=== PATIENT | female | born 1965 | race Two or more races ===

== ENCOUNTER 2018-05-01 07:14 | Observation (INO) | payer OTHER ==
[2018-05-01 07:29] VITALS: BMI 22.8
[2018-05-01] MEDS ORDERED: ASPIRIN 325 MG TABLET PO ONE (07:40)
[2018-05-01] MEDS ORDERED: ASPIRIN 325 MG TABLET ONE (07:45)
[2018-05-01 08:11] LABS: MONO % 8.5 % (3.8-10.2)
--- NOTE | 2018-05-01 08:12 | PDOC ---
*Physical Exam - Vital Signs Last Vital Signs Temp Pulse Resp BP Pulse Ox 98.2 F 69 18 143/93 100 05/01/18 07:27 05/01/18 07:27 05/01/18 07:27 05/01/18 07:27 05/01/18 07:27 - Physical Exam Comments: 05/01/18 08:11 I ED Treatment Course - LABORATORY CBC & Chemistry Diagram: 05/01/18 07:52 05/01/18 07:52 - Medications Given in the ED: ED Medications Discontinued Medications Generic Name Dose Route Start Last Admin Trade Name Freq PRN Reason Stop Dose Admin Aspirin 325 mg 05/01/18 07:40 05/01/18 07:46 Asa - PO 05/01/18 07:41 325 mg ONCE ONE Administration
--- NOTE | 2018-05-01 08:12 | PDOC ---
History of Present Illness - General Chief Complaint: Shortness of Breath Stated Complaint: SOB Time Seen by Provider: 05/01/18 07:26 History Source: Patient - History of Present Illness Presenting Symptoms: Chest Pain, Short of Breath Past History - Past Medical History Allergies/Adverse Reactions: Allergies Allergy/AdvReac Type Severity Reaction Status Date / Time No Known Allergies Allergy Verified 05/01/18 07:29 Home Medications: Ambulatory Orders Cholecalciferol (Vitamin D3) [Vitamin D3] 1,000 unit PO DAILY 05/01/18 Naproxen 500 mg PO BID 05/01/18 COPD: No Hypercholesterolemia: Yes - Suicide/Smoking/Psychosocial Hx Smoking History: Never smoked Review of Systems - Review of Systems Constitutional: No: Chills, Fever Respiratory: Yes: Shortness of Breath. No: Cough Cardiac (ROS): Yes: Chest Pain. No: Lightheadedness, Palpitations, Syncope ABD/GI: No: Nausea, Vomiting *Physical Exam - Vital Signs Last Vital Signs Temp Pulse Resp BP Pulse Ox 98.2 F 69 18 143/93 100 05/01/18 07:27 05/01/18 07:27 05/01/18 07:27 05/01/18 07:27 05/01/18 07:27 - Physical Exam General Appearance: Yes: Appropriately Dressed. No: Apparent Distress HEENT: positive: Normal Voice Neck: positive: Supple Respiratory/Chest: positive: Lungs Clear, Normal Breath Sounds. negative: Respiratory Distress Cardiovascular: positive: Regular Rate, S1, S2 Gastrointestinal/Abdominal: positive: Soft. negative: Tender Extremity: negative: Pedal Edema Integumentary: positive: Dry, Warm Neurologic: positive: Fully Oriented, Alert, Normal Mood/Affect Heart Score/ECG Review - History History: Moderately suspicious - Electrocardiogram EKG: Normal - Age Age: 45-65 - Risk Factors Risk Factors Heart Score: Yes Hx Hypercholesterolemia, Yes Hx Hypertension Based on the list above the patient has:: >/=3 risk factors or Hx atherosclerotic disease - Troponin Troponin: </= normal limit - Score Heart Score - Total: 4 - ECG Intrepretation Comment:: 05/01/18 08:18 Twelve-lead EKG was performed and reviewed by me. There is normal sinus rhythm with a normal rate. The axis is normal. The intervals are normal. There are no ST or T wave abnormalities. Impression: Normal twelve-lead EKG ED Treatment Course - LABORATORY CBC & Chemistry Diagram: 05/01/18 07:52 05/01/18 07:52 - ADDITIONAL ORDERS Additional order review: Laboratory Results 05/01/18 07:52 Sodium 143 Potassium 4.6 Chloride 110 H Carbon Dioxide 27 Anion Gap 6 L BUN 14 Creatinine 0.7 Creat Clearance w eGFR > 60 Random Glucose 90 Calcium 9.4 Total Bilirubin 0.3 AST 16 ALT 27 Alkaline Phosphatase 92 Creatine Kinase 112 Troponin I < 0.02 B-Natriuretic Peptide 29.8 Total Protein 7.2 Albumin 4.0 05/01/18 07:52 RBC 4.61 MCV 88.0 MCHC 32.9 RDW 13.7 MPV 7.9 Neutrophils % 50.5 Lymphocytes % 38.3 Monocytes % 8.5 Eosinophils % 2.1 Basophils % 0.6 - RADIOLOGY Radiology Studies Ordered: Category Date Time Status CHEST X-RAY PORTABLE* [RAD] Stat Radiology 05/01/18 07:40 Ordered - Medications Given in the ED: ED Medications Discontinued Medications Generic Name Dose Route Start Last Admin Trade Name Freq PRN Reason Stop Dose Admin Aspirin 325 mg 05/01/18 07:40 05/01/18 07:46 Asa - PO 05/01/18 07:41 325 mg ONCE ONE Administration Medical Decision Making - Medical Decision Making 05/01/18 08:12 53-year-old female, history of hypertension, hyperlipidemia, CAD, s/p stent over a year ago, not on any blood thinners, here with chest pain. Patient states for the past 3 weeks she's had left-sided chest pain that sometimes radiate to neck and arm, feels like someone pressing on her chest per patient, 7 out of 10, intermittent and usually lasts for 1 minute with no exacerbating or alleviating factors. Patient states for the past 2 months she's had what sounds like mild dyspnea on exertion, but states she wasn't really concerned about it. No diaphoresis, nausea, vomiting, palpitations, leg pain or swelling. States she has never had these symptoms before. 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 Case discussed with Dr. New and patient admitted to shira hawkins M.D., requesting Dr. Compa Martins of cardiology for consultation *DC/Admit/Observation/Transfer Diagnosis at time of Disposition: DAWSON (dyspnea on exertion) Chest pain Qualifiers: Chest pain type: unspecified Qualified Code(s): R07.9 - Chest pain, unspecified - Discharge Dispostion Condition at time of disposition: Fair Decision to Admit order: Yes Decision to Admit order Date/Time: Decision to Admit Order Category Date Time Status Decision to Admit to Hospital Routine Admission 05/01/18 09:28 Active - Referrals - Patient Instructions - Post Discharge Activity
[2018-05-01 08:14] LABS: BASO % 0.6 % (0-2.0); EOS % 2.1 % (0-4.5); HEMATOCRIT 40.6 % (32.4-45.2); HEMOGLOBIN 13.4 GM/dL (10.7-15.3); LYMPH % 38.3 % (8-40); MCHC 32.9 g/dl (32.0-36.0); MEAN PLT VOLUME 7.9 fl (7.5-11.1); NEUT % 50.5 % (42.8-82.8); PLATELET COUNT 235 K/MM3 (134-434); RBC 4.61 M/mm3 (3.60-5.2); RDW 13.7 % (11.6-15.6); WHITE BLOOD COUNT 4.1 K/mm3 (4.0-10.0)
[2018-05-01 08:53] LABS: ALK PHOS 92 U/L (45-117); ANION GAP 6 MMOL/L (8-16); BILIRUBIN,TOTAL 0.3 mg/dL (0.2-1); BLOOD UREA NITROGEN 14 mg/dL (7-18); CALCIUM 9.4 mg/dL (8.5-10.1); CHLORIDE 110 mmol/L (98-107); CO2 27 mmol/L (21-32); CREATININE 0.7 mg/dL (0.55-1.3); GLUCOSE,RANDOM 90 mg/dL (74-106); N-TERMINAL BNP 29.8 pg/ml (5-125); POTASSIUM 4.6 mmol/L (3.5-5.1); SGOT/AST 16 U/L (15-37); SGPT/ALT 27 U/L (13-61); SODIUM 143 mmol/L (136-145); TOT PROT 7.2 g/dl (6.4-8.2)
--- NOTE | 2018-05-01 11:43 | CON.CARD ---
Consult Consult Specialty:: Cardiology Referred by:: Chevy New MD Reason for Consultation:: Chest pain, dyspnea - History of Present Illness Chief Complaint: Chest pain, dyspnea History of Present Illness: 53 yo moroccan speaking female h/o migraine HAs presents for 2 year history of non-exertional chest tightness, dyspnea, palpitations, light-headedness, fatigue with exertion, sxs worse has 2 months. She underwent stress testing and echo at [facility], results requested, referred to cath at [place]. She denies true syncope, orthopnea, PND or LE edema. - Smoking History Smoking history: Never smoked <Compa Martins - Last Filed: 05/01/18 11:49> Home Medications <Compa Martins - Last Filed: 05/01/18 11:49> <Chevy New - Last Filed: 05/01/18 17:46> - Allergies Allergies/Adverse Reactions: Allergies Allergy/AdvReac Type Severity Reaction Status Date / Time No Known Allergies Allergy Verified 05/01/18 07:29 - Home Medications Home Medications: Ambulatory Orders Cholecalciferol (Vitamin D3) [Vitamin D3] 1,000 unit PO DAILY 05/01/18 Naproxen 500 mg PO BID 05/01/18 Review of Systems - Review of Systems Constitutional: reports: No Symptoms Eyes: reports: No Symptoms HENT: reports: No Symptoms Neck: reports: No Symptoms Cardiovascular: reports: Chest Pain, Palpitations, Shortness of Breath Respiratory: reports: No Symptoms Gastrointestinal: reports: No Symptoms Genitourinary: reports: No Symptoms Musculoskeletal: reports: No Symptoms Integumentary: reports: No Symptoms Neurological: reports: Dizziness Endocrine: reports: No Symptoms <Compa Martins - Last Filed: 05/01/18 11:49> Vital Signs: Vital Signs Temperature 98.2 F 05/01/18 07:27 Pulse Rate 69 05/01/18 07:27 Respiratory Rate 18 05/01/18 07:27 Blood Pressure 143/93 05/01/18 07:27 O2 Sat by Pulse Oximetry (%) 100 05/01/18 10:40 Constitutional: Yes: No Distress, Calm Neck: Yes: Supple Respiratory: Yes: Regular, CTA Bilaterally Gastrointestinal: Yes: Normal Bowel Sounds, Soft Cardiovascular: Yes: Regular Rate and Rhythm JVD: No Carotid Bruit: No Heart Sounds: Yes: S1, S2 Edema: No - Other Data Labs, Other Data: CBC, BMP 05/01/18 07:52 05/01/18 07:52 Troponin, BNP 05/01/18 07:52 Troponin I < 0.02 B-Natriuretic Peptide 29.8 Troponin, BNP 05/01/18 07:52 Troponin I < 0.02 B-Natriuretic Peptide 29.8 NSR @ [address]-T changes <Compa Martins - Last Filed: 05/01/18 11:49> Vital Signs: Vital Signs Temperature 98.2 F 05/01/18 07:27 Pulse Rate 69 05/01/18 07:27 Respiratory Rate 18 05/01/18 07:27 Blood Pressure 143/93 05/01/18 07:27 O2 Sat by Pulse Oximetry (%) 100 05/01/18 10:40 - Other Data Labs, Other Data: CBC, BMP 05/01/18 07:52 05/01/18 07:52 Troponin, BNP 05/01/18 07:52 Troponin I < 0.02 B-Natriuretic Peptide 29.8 Troponin, BNP 05/01/18 07:52 Troponin I < 0.02 B-Natriuretic Peptide 29.8 <Chevy New - Last Filed: 05/01/18 17:46> Imaging - Results Chest X-ray: Report Reviewed (NAD) <Compa Martins - Last Filed: 05/01/18 11:49> Problem List - Problems (1) Atypical chest pain Code(s): R07.89 - OTHER CHEST PAIN (2) Palpitations Code(s): R00.2 - PALPITATIONS (3) DAWSON (dyspnea on exertion) Code(s): R06.09 - OTHER FORMS OF DYSPNEA <Compa Martins - Last Filed: 05/01/18 11:49> Assessment/Plan 1. Atypical chest pain syndrome, dyspnea and palpitations suspect mitral valve prolapse syndrome 2. Migraine HAs 3. Anxiety d/o P:1. Ruling out for [place] 2. F/u echo and stress testing performed at cardiology office of Dr. Emanuel Puga [phone] for review 3. Thank you for consultative opportunity, plan of care d/w patient and daughter <Compa Martins Last Filed: 05/01/18 11:49>
--- NOTE | 2018-05-01 14:50 | EKG ---
Test Reason : Blood Pressure : / mmHG Vent. Rate : 063 BPM Atrial Rate : 063 BPM P-R Int : 158 ms QRS Dur : 086 ms QT Int : 384 ms P-R-T Axes : 034 -18 029 degrees QTc Int : 392 ms NORMAL SINUS RHYTHM NORMAL ECG NO PREVIOUS ECGS AVAILABLE Confirmed by NIKKO FUNK, EARNESTINE ([id number]) on 05/01/2018 2:50:15 PM Referred By: Confirmed By:EARNETSINE EL MD
[2018-05-01] MEDS ORDERED: ACETAMINOPHEN 325 MG TABLET (FP) ONE (15:47)
[2018-05-01] MEDS ORDERED: ACETAMINOPHEN 325 MG TABLET (FP) PO ONE (16:00)
--- NOTE | 2018-05-01 18:14 | HP ---
Admitting History and Physical - Primary Care Physician PCP: Chevy New - Admission History of Present Illness: 53 yo trinidadian speaking female h/o migraine HAs presents for 2 year history of non-exertional chest tightness, dyspnea, palpitations, light-headedness, fatigue with exertion. She underwent stress testing and echo at [place] [facility], results requested, referred to cath at [place]. She denies true syncope, orthopnea, PND or LE edema. - Smoking History Smoking history: Never smoked Home Medications - Allergies Allergies/Adverse Reactions: Allergies Allergy/AdvReac Type Severity Reaction Status Date / Time No Known Allergies Allergy Verified 05/01/18 07:29 - Home Medications Home Medications: Ambulatory Orders Cholecalciferol (Vitamin D3) [Vitamin D3] 1,000 unit PO DAILY 05/01/18 Naproxen 500 mg PO BID 05/01/18 Physical Examination Vital Signs: Vital Signs Temperature 98.2 F 05/01/18 07:27 Pulse Rate 69 05/01/18 07:27 Respiratory Rate 18 05/01/18 07:27 Blood Pressure 143/93 05/01/18 07:27 O2 Sat by Pulse Oximetry (%) 100 05/01/18 10:40 Constitutional: Yes: No Distress HENT: Yes: Atraumatic Neck: Yes: Supple Cardiovascular: Yes: Regular Rate and Rhythm Respiratory: Yes: CTA Bilaterally Gastrointestinal: Yes: Normal Bowel Sounds Extremities: Yes: WNL Edema: No Peripheral Pulses WNL: Yes Neurological: Yes: Alert, Oriented Labs: CBC, BMP 05/01/18 07:52 05/01/18 07:52 Problem List - Problems (1) Chest pain Assessment/Plan: tele monitoring fu cardiac enzymes cardiology consults Code(s): R07.9 - CHEST PAIN, UNSPECIFIED Qualifiers: Chest pain type: unspecified Qualified Code(s): R07.9 - Chest pain, unspecified (2) DAWSON (dyspnea on exertion) Code(s): R06.09 - OTHER FORMS OF DYSPNEA Assessment/Plan Laboratory Tests 05/01/18 05/01/18 07:52 07:52 WBC 4.1 RBC 4.61 Hgb 13.4 Hct 40.6 MCV 88.0 MCH 29.0 MCHC 32.9 RDW 13.7 Plt Count 235 MPV 7.9 Absolute Neuts (auto) 2.1 Neutrophils % 50.5 Lymphocytes % 38.3 Monocytes % 8.5 Eosinophils % 2.1 Basophils % 0.6 Nucleated RBC % 0 Sodium 143 Potassium 4.6 Chloride 110 H Carbon Dioxide 27 Anion Gap 6 L BUN 14 Creatinine 0.7 Creat Clearance w eGFR > 60 Random Glucose 90 Calcium 9.4 Total Bilirubin 0.3 AST 16 ALT 27 Alkaline Phosphatase 92 Creatine Kinase 112 Troponin I < 0.02 B-Natriuretic Peptide 29.8 Total Protein 7.2 Albumin 4.0
[2018-05-02 08:35] VITALS: BP 112/56; PULSE 70; TEMP 98.2
--- NOTE | 2018-05-02 12:19 | PN ---
Progress Note, Physician History of Present Illness: Denies chest pain, palpitations or dyspnea. No events on telemetry. - Objective Vital Signs: Vital Signs Temperature 98.2 F 05/02/18 08:33 Pulse Rate 70 05/02/18 08:33 Respiratory Rate 16 05/02/18 08:33 Blood Pressure 112/56 L 05/02/18 08:33 O2 Sat by Pulse Oximetry (%) 98 05/02/18 08:33 Constitutional: Yes: No Distress, Calm Neck: Yes: Supple Cardiovascular: Yes: Regular Rate and Rhythm Respiratory: Yes: Regular, CTA Bilaterally Gastrointestinal: Yes: Normal Bowel Sounds, Soft Edema: No Labs: CBC, BMP 05/01/18 07:52 05/01/18 07:52 - ....Imaging EKG: Report Reviewed Problem List - Problems (1) Atypical chest pain Code(s): R07.89 - OTHER CHEST PAIN (2) Palpitations Code(s): R00.2 - PALPITATIONS (3) DAWSON (dyspnea on exertion) Code(s): R06.09 - OTHER FORMS OF DYSPNEA Assessment/Plan 1. Atypical chest pain syndrome, dyspnea and palpitations suspect mitral valve prolapse syndrome 2. Migraine HAs 3. Anxiety d/o P:1. Ruled out for [place] 2. F/u echo and stress testing performed at cardiology office of Dr. Emanuel Puga [phone] for review 3. November d/c home with f/u as outpatient, plan of care d/w patient and daughter
--- NOTE | 2018-05-02 12:49 | DS ---
Physical Examination Vital Signs: Vital Signs Temperature 98.2 F 05/02/18 08:33 Pulse Rate 70 05/02/18 08:33 Respiratory Rate 16 05/02/18 08:33 Blood Pressure 112/56 L 05/02/18 08:33 O2 Sat by Pulse Oximetry (%) 98 05/02/18 08:33 Constitutional: Yes: No Distress HENT: Yes: Atraumatic Neck: Yes: Supple Cardiovascular: Yes: Regular Rate and Rhythm Respiratory: Yes: CTA Bilaterally Gastrointestinal: Yes: Normal Bowel Sounds Extremities: Yes: WNL Edema: No Peripheral Pulses WNL: Yes Neurological: Yes: Alert, Oriented Labs: CBC, BMP 05/01/18 07:52 05/01/18 07:52 Discharge Summary Reason For Visit: CHEST PAIN Current Active Problems Atypical chest pain (Acute) Chest pain (Acute) DAWSON (dyspnea on exertion) (Acute) Palpitations (Acute) Condition: Fair - Instructions Disposition: HOME - Home Medications Comprehensive Discharge Medication List: Ambulatory Orders Cholecalciferol (Vitamin D3) [Vitamin D3] 1,000 unit PO DAILY 05/01/18 Naproxen 500 mg PO BID 05/01/18 cleared by cardiology to be dc
== END 2018-05-02 12:55 | disposition home or self-care (01) ==
LOC: JER 07:14 → JERBED 09:28
PROVIDERS: ADMIT Internal Medicine; ATTEND Internal Medicine
DX: R07.89 Other chest pain (principal); R00.2 Palpitations; R06.09 Other forms of dyspnea; I10 Essential (primary) hypertension; I25.10 Atherosclerotic heart disease of native coronary artery without angina pectoris; E78.5 Hyperlipidemia, unspecified
CPT/HCPCS: 36415; 71045-TC-FY; 80053; 82550; 83880; 84484; 85025; 93005; 93010; 99285-25; G0378